=== PATIENT | female | born 1990 | race Caucasian/White ===

== ENCOUNTER 2022-01-03 08:51 | Emergency (ER) | payer OTHER ==
[~2022-01-03] VITALS: Ht 157.5 cm; Wt 50.8 kg
[~2022-01-03 08:51] MED LIST: CIPRO500 MG PO; IRON 100 PLUS1 EACH PO; KEFLEX500 MG PO; PRENATABS RX T1 EACH PO; PYRIDIUM200 MG PO; ULTRACET PO; URETRON D-S TAB1 TAB PO
== END 2022-01-03 11:58 | disposition home or self-care (01) ==
LOC: ER 08:51
DX: U07.1 COVID-19 (principal)